=== PATIENT | male | born 1990 | race Caucasian/White ===

== ENCOUNTER 2025-02-04 04:39 | Emergency (ER) | payer BC ==
[~2025-02-04] VITALS: Ht 175.3 cm; Wt 95.2 kg
[2025-02-04] MEDS ORDERED: Ketorolac Tromethamine 30mg Vial IM ONE (08:05)
[2025-02-04] MEDS ORDERED: Methyl Salicylate/Menth/Camph 57 GM TUBE TOP ONE (08:05)
[2025-02-04] MEDS ORDERED: LIDO700A20 TOP (08:43)
[2025-02-04] MEDS ORDERED: DIAZ2 PO (08:43)
[2025-02-04] MEDS ORDERED: Flexeril10 MG PO (08:43)
[2025-02-04 08:53] VITALS: BP 131/85
== END 2025-02-04 08:52 | disposition home or self-care (01) ==
LOC: ER 04:39
DX: M54.10 Radiculopathy, site unspecified (principal)
CPT/HCPCS: 96372; 99283-25; A9270; J1885